=== PATIENT | male | born 1980 ===

== ENCOUNTER → 2023-11-19 10:37 | Outpatient (BNVA) | payer MEDICARE, MEDICAID, SELFPAY | PROVIDERS: PCP Family Medicine; Referring Provider Family Medicine; Visit Provider Physician Assistant Surgical | DX: J96.91 Respiratory failure, unspecified with hypoxia (principal); I27.20 Pulmonary hypertension, unspecified; E66.2 Morbid (severe) obesity with alveolar hypoventilation; I50.810 Right heart failure, unspecified; J98.4 Other disorders of lung | CPT/HCPCS: 99215 ==

== ENCOUNTER → 2024-03-14 13:03 | Outpatient (BNVA) | payer OTHER, MEDICAID, SELFPAY | PROVIDERS: PCP Family Medicine; Referring Provider Family Medicine; Visit Provider Internal Medicine Critical Care Medicine | DX: J98.4 Other disorders of lung (principal); I27.20 Pulmonary hypertension, unspecified; J96.91 Respiratory failure, unspecified with hypoxia; I50.810 Right heart failure, unspecified; G47.33 Obstructive sleep apnea (adult) (pediatric) | CPT/HCPCS: 99215 ==

== ENCOUNTER → 2025-01-03 13:25 | Outpatient (BNVA) | payer MEDICARE, MEDICAID, SELFPAY | PROVIDERS: PCP Family Medicine; Referring Provider Family Medicine; Visit Provider Physician Assistant Surgical | DX: I27.20 Pulmonary hypertension, unspecified (principal); J98.4 Other disorders of lung; E66.2 Morbid (severe) obesity with alveolar hypoventilation; J96.91 Respiratory failure, unspecified with hypoxia; I50.810 Right heart failure, unspecified | CPT/HCPCS: 99214 ==

== ENCOUNTER 2025-01-03 15:57 | Outpatient (REF) | payer MEDICARE, MEDICAID, SELFPAY ==
[2025-01-03 15:11] LABS: BE 8 mmol/L (-2-3); HCO3 33 mmol/L (22-26); pCO2 58 mmHg (35-45); pH 7.36 (7.35-7.45); pO2 127 mmHg (80-105); tCO2 30 mmol/L (23-27)
[2025-01-03 15:12] LABS: FIO2L 8 L; Site Right Radial
== END 2025-01-03 15:58 | disposition home or self-care (01) ==
LOC: NCHCN 15:57
PROVIDERS: PCP Family Medicine; Visit Provider Physician Assistant Surgical
DX: I27.20 Pulmonary hypertension, unspecified (principal); E66.2 Morbid (severe) obesity with alveolar hypoventilation
CPT/HCPCS: 82805; 36600